=== PATIENT | male | born 1980 | race Caucasian/White ===

== ENCOUNTER 2022-05-01 06:50 | Emergency (ER) | payer OTHER, MEDICAID, SELFPAY ==
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
--- NOTE | 2022-05-01 07:06 | DI.CT.S_ITS ---
PROCEDURE: CT THORACIC SPINE WO CON INDICATIONS: fall yesterday pain all over TECHNIQUE: Noncontrast 3 mm thick sections acquired through the region of interest in the thoracic spine. Sagittal and coronal reformats were then constructed. For radiation dose reduction, the following was used: automated exposure control. COMPARISON: None. FINDINGS: Image quality: Excellent. Bones: There is mild kyphosis centered at approximately T7-8 level.. No acute vertebral body compression fractures. Loss of disc height and mild degenerative endplate changes are noted throughout mid to lower thoracic spine. No suspicious sclerotic or lytic bony lesions. Central spinal canal is of normal overall caliber. Soft tissues: No paravertebral masses or hematomas. Visualized posteromedial lungs appear clear. IMPRESSION: 1. No acute thoracic spine fracture or dislocation. 2. Mild kyphosis. Mild degenerative disc disease throughout mid to lower thoracic spine. Dictated by: Dhiraj Reyes M.D. on 05/01/2022 at 8:26 Approved by: Dhiraj Reyes M.D. on 05/01/2022 at 8:28
--- NOTE | 2022-05-01 07:06 | DI.CT.S_ITS ---
PROCEDURE: CT CERVICAL SPINE WO CON INDICATIONS: fall yesterday pain all over TECHNIQUE: Noncontrast 3 mm thick sections acquired from the skull base to the T4 level. Sagittal and coronal reformats were then constructed. For radiation dose reduction, the following was used: automated exposure control, adjustment of mA and/or kV according to patient size. COMPARISON: None. FINDINGS: Image quality: Excellent. Bones: No fractures or dislocations. Mild degenerative endplate changes are seen at C5-6 and C6-7 levels with prominent anterior and dorsal disc osteophyte complex formation at C6-7 level causing mild central canal stenosis. Visualized superior ribs are intact. Soft tissues: Prevertebral soft tissues are normal in thickness. No paravertebral hematomas. No apical pneumothoraces. IMPRESSION: 1. No acute cervical spine fracture or dislocation. 2. Degenerative disc disease at C5-6 and C6-7 levels as above. Dictated by: Dhiraj Reyes M.D. on 05/01/2022 at 8:18 Approved by: Dhiraj Reyes M.D. on 05/01/2022 at 8:19
--- NOTE | 2022-05-01 07:06 | DI.RAD.S_ITS ---
PROCEDURE: XR SHOULDER LT MIN 2V INDICATIONS: fall TECHNIQUE: 3 views of the shoulder were acquired. COMPARISON: None. FINDINGS: Bones: No fractures or dislocations. Mild acromioclavicular joint osteoarthritic changes are seen with joint space narrowing and subchondral sclerosis. Well corticated calcification adjacent to superior aspect of acromioclavicular joint is seen suggestive of old injury. No suspicious bony lesions. Visualized ribs appear intact. Soft tissues: No suspicious soft tissue calcifications. IMPRESSION: No acute left shoulder fracture or dislocation. Suggestion of old injury involving distal clavicle with mild acromioclavicular joint osteoarthritis. Dictated by: Dhiraj Reyes M.D. on 05/01/2022 at 8:37 Approved by: Dhiraj Reyes M.D. on 05/01/2022 at 8:38
--- NOTE | 2022-05-01 07:06 | DI.RAD.S_ITS ---
PROCEDURE: XR FOOT LT MIN 3V INDICATIONS: fall TECHNIQUE: 3 views of the foot were acquired. COMPARISON: None. FINDINGS: Bones: No fractures or dislocations. No suspicious bony lesions. Soft tissues: No tibiotalar joint effusion. Achilles tendon appears normal. Small calcification is seen within dorsal soft tissue between 1st and 2nd metatarsal bones and is of indeterminate significance. IMPRESSION: No acute left foot fracture or dislocation. Small soft tissue calcification as above. Dictated by: Dhiraj Reyes M.D. on 05/01/2022 at 8:28 Approved by: Dhiraj Reyes M.D. on 05/01/2022 at 8:37
--- NOTE | 2022-05-01 07:06 | DI.CT.S_ITS ---
PROCEDURE: CT HEAD/BRAIN WO CON INDICATIONS: fall yesterday pain all over TECHNIQUE: Noncontrast 4.5 mm thick angled axial sections acquired from the foramen magnum to the vertex, with coronal and sagittal reformats. For radiation dose reduction, the following was used: automated exposure control, adjustment of mA and/or kV according to patient size. COMPARISON: None. FINDINGS: Image quality: Excellent. CSF spaces: Basal cisterns are patent. No extra-axial fluid collections. Ventricles are normal in size and shape. Brain: No midline shift. No intracranial masses or hemorrhage. Snydre-white matter interface is normal. Skull and face: Small left posterior parietal occipital scalp hematoma and swelling is seen. Calvarium and visualized facial bones are intact, without suspicious lesions. Sinuses: Visualized sinuses and mastoids are clear. IMPRESSION: 1. No CT evidence of acute intracranial abnormalities. 2. Small left posterior parietal occipital scalp hematoma and swelling. No acute skull fracture. Dictated by: Dhiraj Reyes M.D. on 05/01/2022 at 8:19 Approved by: Dhiraj Reyes M.D. on 05/01/2022 at 8:20
[2022-05-01 07:09] VITALS: BP 144/82; PULSE 85; RESP 24; TEMP 36.8; O2SAT 98; BMI 36.3
--- NOTE | 2022-05-01 07:26 | DI.RAD.S_ITS ---
PROCEDURE: XR CHEST 1V INDICATIONS: fall TECHNIQUE: One view of the chest was acquired. COMPARISON: None. FINDINGS: Surgical changes and devices: None. Lungs and pleura: Lungs are clear. No pleural effusions or pneumothorax. Mediastinum: Mediastinal contours appear normal. Heart size is normal. Bones and chest wall: No suspicious bony lesions. Overlying soft tissues appear unremarkable. IMPRESSION: No acute cardiopulmonary pathology. Dictated by: Dhiraj Ryees M.D. on 05/01/2022 at 8:37 Approved by: Dhiraj Reyes M.D. on 05/01/2022 at 8:37
[2022-05-01 07:45] VITALS: RESP 12; O2SAT 93
[2022-05-01] MEDS: HYDROMORPHONE 1 MG INJ IV (07:45)
--- NOTE | 2022-05-01 07:54 | DI.CT.S_ITS ---
PROCEDURE: CT LUMBAR SPINE WO CON INDICATIONS: severe pain fall TECHNIQUE: Noncontrast 3 mm thick sections acquired from the T12 level to the sacrum. Sagittal and coronal reformats were constructed. For radiation dose reduction, the following was used: automated exposure control. COMPARISON: None. FINDINGS: Image quality: Excellent. Bones: There is normal bony alignment. No acute vertebral body compression fractures. No suspicious lytic or blastic bony lesions. No pars defects. T12-L1: Unremarkable L1-L2: Unremarkable. L2-L3: Mild degenerative endplate changes are seen. Broad-based disc bulge is noted with mild central canal stenosis, no significant neural foraminal narrowing. L3-L4: Mild broad-based disc bulge is seen with mild central canal stenosis, no significant neural foraminal narrowing. L4-L5: Degenerative endplate changes are noted. Broad-based disc bulge and bilateral facet arthrosis is seen causing [id number]-xx-qumynaov central canal stenosis and bilateral neural foraminal narrowing. L5-S1: Mild diffuse disc bulge is seen without significant canal stenosis or neural foraminal narrowing. Soft tissues: No retroperitoneal masses or hematomas. Visualized aorta is normal in caliber. IMPRESSION: 1. No acute lumbar spine fracture or dislocation. 2. Mild degenerative disc disease throughout lumbar spine more prominent at L4-5 level as above. Dictated by: Dhiraj Reyes M.D. on 05/01/2022 at 8:20 Approved by: Dhiraj Reyes M.D. on 05/01/2022 at 8:26
[2022-05-01] MEDS: KETOROLAC 30 MG/ML VIAL 15 MG IV (08:21)
--- NOTE | 2022-05-01 09:45 | PC.NURSE ---
Patient up for discharge. He is very upset with his care. States that he feels he is being treated like he is a drug seeker. States there is something wrong with my shoulder. Assisted patient with shoulder immobilizer and into wheelchair. Emphasized follow up care.
== END 2022-05-01 09:51 | disposition home or self-care (01) ==
PROVIDERS: Emergency Provider Emergency Medicine
DX: M54.9 Dorsalgia, unspecified (principal); M25.512 Pain in left shoulder; M79.672 Pain in left foot; T14.8XXA Other injury of unspecified body region, initial encounter; V19.9XXA Pedal cyclist (driver) (passenger) injured in unspecified traffic accident, initial encounter
CPT/HCPCS: 70450; 71045; 72125; 72128; 72131; 73030; 73630; 96374; 96375; 99284; J1170; J1885